=== PATIENT | male | born 1955 ===

== ENCOUNTER → 2017-07-12 | Outpatient (CLI) | payer OTHER ==
--- NOTE | 2017-07-12 13:40 | RAD ---
PET ONCOLOGY CLINICAL INDICATION: i Enlarging lung nodule. FDG PET-CT of the Body TECHNIQUE: The patient received an IV injection of 13.2 mCi 18F-FDG in the right antecubital. After an initial uptake phase of approximately 60-90 minutes, a CT scan without oral contrast, without IV contrast was acquired. Subsequently, positron emission tomography images from the skull base to mid thigh were obtained. CT, PET and fused images were reconstructed in transaxial, coronal, and sagittal projections and interpreted from a workstation. The patient's plasma glucose was 108 mg/dl. PRIOR STUDIES: No prior studies CORRELATIVE STUDIES: There are no appropriate correlative studies FINDINGS: CT: Limited study due to lack of IV contrast. Visualized noncontrast sections through the brain and neck are within normal limits. No axillary, mediastinal adenopathy. Evaluation of hilar lymph node limited due to lack of IV contrast. Heart is normal in size. No pericardial or pleural effusion. Coronary artery calcifications noted. Diffuse emphysematous changes in the lungs. Lobulated 1.2 cm pulmonary nodule is seen at the junction of superior lobe of the right lower lobe and posterior lobe of the right upper lobe. 7 mm pulmonary nodules seen within the right upper lobe (series 6 image 167). Noncontrast appearance of the liver, spleen, gallbladder, pancreas, adrenals and kidneys is within normal limits. No bowel obstruction. Moderate atherosclerotic disease of abdominal aorta and bilateral iliac vessels. Bladder is decompressed. Prostate and seminal vesicles show no mass lesions. No suspicious lytic or blastic osseous lesion. PET: Pulmonary nodules described above demonstrate no hypermetabolic activity. IMPRESSION: PET-CT from the skull base to midthigh demonstrates: No hypermetabolic activity demonstrated in right pulmonary nodules. Direct comparison with outside imaging recommended for evaluation of interval growth.
== END | disposition home or self-care (01) ==
LOC: PETSC 10:25
PROVIDERS: ATTEND Student in an Organized Health Care Education/Training Program
DX: J41.0 Simple chronic bronchitis (principal); R91.1 Solitary pulmonary nodule
CPT/HCPCS: 78815; A9552